=== PATIENT | male | born 1965 | race African-American/Black ===

== ENCOUNTER 2021-11-08 15:10 | Emergency (ER) | payer MEDICAID ==
[~2021-11-08] VITALS: Ht 180.3 cm; Wt 140.9 kg
[2021-11-08] MEDS ORDERED: LISI-893 PO (15:32)
[2021-11-08] MEDS ORDERED: RIVA2.5T3 PO (15:32)
[2021-11-08 16:12] LABS: BASOPHILS % (AUTO) 0.5 % (0.0-2.0); EOSINOPHILS % (AUTO) 1.1 % (1.0-6.0); HEMATOCRIT 43.4 % (41-53); HEMOGLOBIN 14.5 g/dL (13.5-17.5); LYMPHOCYTES # (AUTO) 2.5 K/uL (1.0-4.8); LYMPHOCYTES % (AUTO) 34.4 % (22.0-44.0); MEAN CORPUSCULAR HEMOGLOBIN 26.7 pg (26.0-34.0); MEAN CORPUSCULAR HGB CONC 33.4 G/dL (31.0-37.0); MEAN CORPUSCULAR VOLUME 80 fL (80-100); MONOCYTES # (AUTO) 0.6 K/uL (0.1-1.0); PLATELET COUNT (AUTO) 177 K/uL (150-450); RED BLOOD CELL COUNT(AUTO) 5.44 MIL/uL (4.50-5.90); RED CELL DISTRIBUTION WIDTH 15.7 % (11.5-14.5)
[2021-11-08 16:27] LABS: CALCIUM, TOTAL 9.6 mg/dL (8.8-10.5); CREATININE 1.49 mg/dL (0.60-1.30); POTASSIUM 3.4 mmol/L (3.5-5.1)
[2021-11-08 16:33] LABS: ALBUMIN 3.6 g/dL (3.4-5.0); BILIRUBIN,TOTAL 0.5 mg/dL (0.1-1.0); TOTAL PROTEIN, SERUM 7.7 g/dL (6.4-8.2)
[2021-11-08 18:14] VITALS: BP 126/85
== END 2021-11-08 18:52 | disposition home or self-care (01) ==
LOC: EMS 15:10
DX: T18.0XXA Foreign body in mouth, initial encounter (principal); I10 Essential (primary) hypertension; I48.91 Unspecified atrial fibrillation; X58.XXXA Exposure to other specified factors, initial encounter; Y93.89 Activity, other specified; Y92.89 Other specified places as the place of occurrence of the external cause; Y99.8 Other external cause status
CPT/HCPCS: 70490; 80053; 85025; 99284

== ENCOUNTER 2022-01-13 17:49 | Inpatient (IN) | payer MEDICAID ==
[~2022-01-13] VITALS: Ht 180.3 cm; Wt 139.3 kg
[~2022-01-13 17:49] MED LIST: LISI-893 PO; RIVA2.5T3 PO
[2022-01-13] MEDS ORDERED: RIVA20TA PO (18:12)
[2022-01-13] MEDS ORDERED: LORA10TA7 PO (18:12)
[2022-01-13] MEDS ORDERED: LISI30TA4 PO (18:12)
[2022-01-13] MEDS ORDERED: ATOR40TA71 PO (18:12)
[2022-01-13] MEDS ORDERED: METO-416 PO (18:12)
[2022-01-13 19:08] LABS: BASOPHILS % (AUTO) 0.6 % (0.0-2.0); EOSINOPHILS % (AUTO) 0.8 % (1.0-6.0); HEMATOCRIT 43.6 % (41-53); HEMOGLOBIN 14.3 g/dL (13.5-17.5); LYMPHOCYTES # (AUTO) 2.4 K/uL (1.0-4.8); LYMPHOCYTES % (AUTO) 34.9 % (22.0-44.0); MEAN CORPUSCULAR HEMOGLOBIN 26.9 pg (26.0-34.0); MEAN CORPUSCULAR HGB CONC 32.7 G/dL (31.0-37.0); MEAN CORPUSCULAR VOLUME 82 fL (80-100); MONOCYTES # (AUTO) 0.5 K/uL (0.1-1.0); MONOCYTES % (AUTO) 6.5 % (2.0-9.0); NEUTROPHILS % (AUTO) 57.2 % (40.0-70.0); PLATELET COUNT (AUTO) 155 K/uL (150-450); RED BLOOD CELL COUNT(AUTO) 5.31 MIL/uL (4.50-5.90); RED CELL DISTRIBUTION WIDTH 16.3 % (11.5-14.5)
[2022-01-13 19:20] LABS: CALCIUM, TOTAL 9.9 mg/dL (8.8-10.5); CREATININE 1.6 mg/dL (0.60-1.30)
[2022-01-13 19:21] LABS: INR 1.2 (0.9-1.1); PROTHROMBIN TIME 12.9 SEC (9.4-11.6)
[2022-01-13 19:25] LABS: ALBUMIN 3.5 g/dL (3.4-5.0); BILIRUBIN,TOTAL 0.9 mg/dL (0.1-1.0); TOTAL PROTEIN, SERUM 7.2 g/dL (6.4-8.2)
[2022-01-13] MEDS ORDERED: FUROSEMIDE 40 MG/4 ML VIAL IVP ONE (20:00)
[2022-01-13] MEDS ORDERED: DILTIAZEM HCL 5 MG/ML 5 ML VIAL IVP ONE (20:00)
[2022-01-13] MEDS ORDERED: ONDANSETRON HCL 4 MG/2 ML VIAL IVP PRN (20:45)
[2022-01-13] MEDS ORDERED: ACETAMINOPHEN 325 MG TABLET PO PRN (20:45)
[2022-01-13 21:31] LABS: APPEARANCE,URINE CLEAR (CLEAR); BILIRUBIN,URINE NEGATIVE (NEGATIVE); GLUCOSE, URINE (UA) NEGATIVE (NEGATIVE); KETONES,URINE NEGATIVE (NEGATIVE); LEUKOCYTE ESTERASE ,URINE NEGATIVE (NEGATIVE); NITRATE,URINE NEGATIVE (NEGATIVE); OCCULT BLOOD,URINE NEGATIVE (NEGATIVE); PROTEIN,URINE TRACE mg/dL (NEGATIVE); SPECIFIC GRAVITIY, URINE 1.013 (1.003-1.030); UROBILINOGEN,URINE <=1.0 mg/dL (<=1.0)
[2022-01-13 21:32] LABS: CREATININE,URINE RANDOM 121.2 mg/dL (30.0-125.0); SODIUM,URINE RANDOM 121 mmol/l (20-110)
[2022-01-13 21:51] LABS: BACTERIA,URINE None Seen /HPF (None Seen); RBC,URINE 0-2 /HPF (0-2); SQUAMOUS EPITHELIAL CELL,UR Rare /LPF (None Seen); WBC,URINE 0-2 /HPF (0-5)
[2022-01-13 21:59] LABS: THYROID STIMULATING HORMONE 2.07 uIU/mL (0.36-3.74)
[2022-01-14] MEDS ORDERED: LABETALOL HCL 100 MG TABLET PO SCH ×2 (06:00→21:00)
[2022-01-14 06:54] LABS: BASOPHILS % (AUTO) 0.6 % (0.0-2.0); CALCIUM, TOTAL 9.5 mg/dL (8.8-10.5); CREATININE 1.75 mg/dL (0.60-1.30); HEMATOCRIT 43.5 % (41-53); HEMOGLOBIN 14.3 g/dL (13.5-17.5); LYMPHOCYTES # (AUTO) 2.3 K/uL (1.0-4.8); LYMPHOCYTES % (AUTO) 29.9 % (22.0-44.0); MEAN CORPUSCULAR HEMOGLOBIN 27.3 pg (26.0-34.0); MEAN CORPUSCULAR VOLUME 83 fL (80-100); MONOCYTES # (AUTO) 0.7 K/uL (0.1-1.0); MONOCYTES % (AUTO) 9.3 % (2.0-9.0); NEUTROPHILS # (AUTO) 4.6 K/uL (1.8-7.7); NEUTROPHILS % (AUTO) 59.2 % (40.0-70.0); PLATELET COUNT (AUTO) 160 K/uL (150-450); POTASSIUM 3.7 mmol/L (3.5-5.1); RED BLOOD CELL COUNT(AUTO) 5.25 MIL/uL (4.50-5.90); RED CELL DISTRIBUTION WIDTH 16.9 % (11.5-14.5)
[2022-01-14 08:14] LABS: COVID AG,FIA SOURCE NASAL SWAB
[2022-01-14] MEDS ORDERED: RIVAROXABAN 20 MG TABLET PO SCH (09:00)
[2022-01-14] MEDS ORDERED: FUROSEMIDE 40 MG/4 ML VIAL IVP SCH ×2 (09:00→12:00)
[2022-01-14] MEDS: LORATADINE 10 MG TABLET PO SCH (09:05)
[2022-01-14] MEDS: LISINOPRIL 10 MG TABLET PO SCH (09:05)
[2022-01-14] MEDS: ATORVASTATIN CALCIUM 40 MG TABLET PO SCH (09:06)
[2022-01-14] MEDS: METOPROLOL SUCCINATE 50 MG ER TABLET PO SCH (09:06)
[2022-01-14] MEDS: RIVAROXABAN 15 MG TABLET PO SCH (09:06)
[2022-01-14] MEDS ORDERED: DIGOXIN 250 MCG/ML 2 ML AMP IVP ONE (14:30)
[2022-01-14 15:09] VITALS: BP 148/96
[2022-01-14 20:56] VITALS: BP 150/96
[2022-01-14] MEDS: FUROSEMIDE 20 MG/2 ML VIAL IVP SCH (21:36)
[2022-01-14 23:42] VITALS: BP 146/96
[2022-01-14] MEDS ORDERED: LABETALOL HCL 5 MG/ML 20 ML VIAL IVP ONE (23:45)
[2022-01-15] VITALS (7 sets, daily range): BP systolic 117–153; BP diastolic 80–112
[2022-01-15] MEDS ORDERED: AMIODARONE HCL 150 MG in DEXTROSE 5%-WATER 97 ML IV ONE (01:00)
[2022-01-15] MEDS ORDERED: AMIODARONE HCL 360 MG in DEXTROSE 5%-WATER 242.8 ML IV ONE (01:00)
[2022-01-15 06:23] LABS: BASOPHILS % (AUTO) 0.3 % (0.0-2.0); EOSINOPHILS % (AUTO) 0.9 % (1.0-6.0); HEMATOCRIT 43.6 % (41-53); HEMOGLOBIN 14.2 g/dL (13.5-17.5); LYMPHOCYTES # (AUTO) 2.3 K/uL (1.0-4.8); LYMPHOCYTES % (AUTO) 26.2 % (22.0-44.0); MEAN CORPUSCULAR HEMOGLOBIN 27.3 pg (26.0-34.0); MEAN CORPUSCULAR HGB CONC 32.7 G/dL (31.0-37.0); MEAN CORPUSCULAR VOLUME 84 fL (80-100); MONOCYTES # (AUTO) 0.2 K/uL (0.1-1.0); MONOCYTES % (AUTO) 2.2 % (2.0-9.0); NEUTROPHILS # (AUTO) 6.2 K/uL (1.8-7.7); NEUTROPHILS % (AUTO) 70.4 % (40.0-70.0); PLATELET COUNT (AUTO) 141 K/uL (150-450); RED BLOOD CELL COUNT(AUTO) 5.21 MIL/uL (4.50-5.90); RED CELL DISTRIBUTION WIDTH 16.6 % (11.5-14.5)
[2022-01-15 06:44] LABS: CALCIUM, TOTAL 9.5 mg/dL (8.8-10.5); CREATININE 1.77 mg/dL (0.60-1.30); POTASSIUM 3.3 mmol/L (3.5-5.1)
[2022-01-15] MEDS ORDERED: AMIODARONE HCL 540 MG in DEXTROSE 5%-WATER 239.2 ML IV ONE (07:00)
[2022-01-15] MEDS ORDERED: DIGOXIN 250 MCG/ML 2 ML AMP IVP ONE (09:15)
[2022-01-15] MEDS: FUROSEMIDE 20 MG/2 ML VIAL IVP SCH (09:28)
[2022-01-15] MEDS: RIVAROXABAN 15 MG TABLET PO SCH (09:29)
[2022-01-15] MEDS: LORATADINE 10 MG TABLET PO SCH (09:29)
[2022-01-15] MEDS: LISINOPRIL 10 MG TABLET PO SCH (09:29)
[2022-01-15] MEDS: METOPROLOL SUCCINATE 50 MG ER TABLET PO SCH (09:29)
[2022-01-15] MEDS: ATORVASTATIN CALCIUM 40 MG TABLET PO SCH (09:29)
[2022-01-16 04:39] VITALS: BP 146/99
[2022-01-16 06:57] LABS: CALCIUM, TOTAL 10.1 mg/dL (8.8-10.5); CREATININE 1.75 mg/dL (0.60-1.30); POTASSIUM 3.7 mmol/L (3.5-5.1)
[2022-01-16 07:51] VITALS: BP 167/105
[2022-01-16] MEDS: LORATADINE 10 MG TABLET PO SCH (08:45)
[2022-01-16] MEDS: RIVAROXABAN 15 MG TABLET PO SCH (08:45)
[2022-01-16] MEDS: LISINOPRIL 10 MG TABLET PO SCH (08:46)
[2022-01-16] MEDS: ATORVASTATIN CALCIUM 40 MG TABLET PO SCH (08:47)
[2022-01-16] MEDS: METOPROLOL SUCCINATE 50 MG ER TABLET PO SCH (08:47)
[2022-01-16] MEDS ORDERED: FUROSEMIDE 20 MG TABLET PO SCH (09:00)
[2022-01-16 10:47] VITALS: BP 162/107
[2022-01-16] MEDS ORDERED: LISI-893 PO ×2 (11:39→14:59)
[2022-01-16] MEDS ORDERED: METO-391 PO (11:39)
[2022-01-16] MEDS ORDERED: FURO20 PO (11:39)
[2022-01-16] MEDS ORDERED: RIVA15TA PO (11:39)
[2022-01-16] MEDS ORDERED: ATOR40TA71 PO (11:39)
[2022-01-16] MEDS ORDERED: DIGOXIN 125 MCG TABLET PO SCH (14:00)
[2022-01-16] MEDS ORDERED: DIGO125T84 PO (15:01)
== END 2022-01-16 16:30 | disposition home or self-care (01) | DRG 194 ==
LOC: EMS 17:49 → 5S 01-14 11:29
PROVIDERS: ADMIT Internal Medicine; ATTEND Internal Medicine
DX: I13.0 Hypertensive heart and chronic kidney disease with heart failure and stage 1 through stage 4 chronic kidney disease, or unspecified chronic kidney disease (principal); N17.9 Acute kidney failure, unspecified; I48.19 Other persistent atrial fibrillation; Z79.01 Long term (current) use of anticoagulants; I50.43 Acute on chronic combined systolic (congestive) and diastolic (congestive) heart failure; E66.01 Morbid (severe) obesity due to excess calories; E78.5 Hyperlipidemia, unspecified; Z20.822 Contact with and (suspected) exposure to COVID-19; E78.00 Pure hypercholesterolemia, unspecified; N18.30 Chronic kidney disease, stage 3 unspecified; Z68.41 Body mass index [BMI] 40.0-44.9, adult; Z71.3 Dietary counseling and surveillance; Z79.899 Other long term (current) drug therapy; Z86.73 Personal history of transient ischemic attack (TIA), and cerebral infarction without residual deficits
CPT/HCPCS: 71045; 80048; 80053; 81001; 82570; 83735; 83880; 84300; 84443; 84484; 85025; 85610; 93005; 93306; 99291; J0282; J1160; J1940; J3490; J7060; 36415-L1; 36415-TC

== ENCOUNTER 2022-02-15 17:27 | Emergency (ER) | payer MEDICAID ==
[~2022-02-15] VITALS: Ht 180.3 cm; Wt 136.4 kg
[~2022-02-15 17:27] MED LIST changes: +ATOR40TA71 PO; +DIGO125T84 PO; +FURO20 PO; +LORA10TA7 PO; +METO-391 PO; +RIVA15TA PO; -RIVA2.5T3 PO
[2022-02-15 18:22] LABS: COVID AG,FIA SOURCE NASAL SWAB
[2022-02-15 18:42] LABS: INFLUENZA TYPE A NEGATIVE FOR TYPE A (NEGATIVE); INFLUENZA TYPE B NEGATIVE FOR TYPE B (NEGATIVE)
[2022-02-15 22:04] VITALS: BP 141/98
[2022-02-15] MEDS ORDERED: BENZ-70 PO (22:06)
[2022-02-15] MEDS ORDERED: AZIT250T9 PO (22:06)
[2022-02-15] MEDS ORDERED: BENZONATATE 100 MG CAPSULE PO ONE (22:30)
== END 2022-02-15 22:30 | disposition home or self-care (01) ==
LOC: EMS 17:33
DX: J40 Bronchitis, not specified as acute or chronic (principal); I10 Essential (primary) hypertension; I48.91 Unspecified atrial fibrillation; E78.00 Pure hypercholesterolemia, unspecified; Z79.899 Other long term (current) drug therapy; Z20.822 Contact with and (suspected) exposure to COVID-19
CPT/HCPCS: 71045; 87804; 99284

== ENCOUNTER 2023-07-11 01:38 | Emergency (ER) | payer MEDICAID ==
[~2023-07-11] VITALS: Ht 180.3 cm; Wt 137.0 kg
[~2023-07-11 01:38] MED LIST changes: +BENZ-227 PO
[2023-07-11 02:00] VITALS: PULSE 84; TEMP 99.2
[2023-07-11 02:07] LABS: APPEARANCE,URINE CLEAR (CLEAR); BILIRUBIN,URINE NEGATIVE (NEGATIVE); COLOR,URINE COLORLESS (YELLOW); GLUCOSE, URINE (UA) NEGATIVE (NEGATIVE); KETONES,URINE NEGATIVE (NEGATIVE); LEUKOCYTE ESTERASE ,URINE NEGATIVE (NEGATIVE); NITRATE,URINE NEGATIVE (NEGATIVE); OCCULT BLOOD,URINE NEGATIVE (NEGATIVE); PH,URINE 5.5 (5.0-8.0); PROTEIN,URINE NEGATIVE (NEGATIVE); SPECIFIC GRAVITIY, URINE 1.012 (1.003-1.030)
[2023-07-11 03:34] VITALS: BP 141/100; RESP 16
== END 2023-07-11 05:01 | disposition left against medical advice (07) ==
LOC: EMS 01:41
DX: R30.0 Dysuria (principal); R10.9 Unspecified abdominal pain; E78.00 Pure hypercholesterolemia, unspecified; I10 Essential (primary) hypertension; I48.91 Unspecified atrial fibrillation
CPT/HCPCS: 81003; 87491; 87591; 99283

== ENCOUNTER 2024-02-23 15:28 | Emergency (ER) | payer MEDICAID ==
[~2024-02-23] VITALS: Ht 180.3 cm; Wt 137.7 kg
[~2024-02-23 15:28] MED LIST changes: -BENZ-227 PO; -DIGO125T84 PO; -FURO20 PO; +FURO20TA5 PO
[2024-02-23 16:15] VITALS: TEMP 98.7
[2024-02-23] MEDS ORDERED: RIVA20TA PO (16:18)
[2024-02-23] MEDS ORDERED: CARV25 PO (16:18)
[2024-02-23] MEDS ORDERED: LOSA-381 PO (16:18)
[2024-02-23 16:51] LABS: BASOPHILS % (AUTO) 0.6 % (0.0-2.0); EOSINOPHILS % (AUTO) 1.6 % (1.0-6.0); HEMATOCRIT 40.8 % (41-53); HEMOGLOBIN 13.4 g/dL (13.5-17.5); LYMPHOCYTES % (AUTO) 32.6 % (22.0-44.0); MEAN CORPUSCULAR HEMOGLOBIN 26.2 pg (26.0-34.0); MEAN CORPUSCULAR HGB CONC 32.9 G/dL (31.0-37.0); MEAN CORPUSCULAR VOLUME 80 fL (80-100); MONOCYTES # (AUTO) 0.5 K/uL (0.1-1.0); MONOCYTES % (AUTO) 8.4 % (2.0-9.0); NEUTROPHILS # (AUTO) 3.5 K/uL (1.8-7.7); NEUTROPHILS % (AUTO) 56.8 % (40.0-70.0); PLATELET COUNT (AUTO) 169 K/uL (150-450); RED BLOOD CELL COUNT(AUTO) 5.14 MIL/uL (4.50-5.90); RED CELL DISTRIBUTION WIDTH 15.7 % (11.5-14.5); WHITE BLOOD COUNT (AUTO) 6.1 K/uL (4.5-11.0)
[2024-02-23 16:59] LABS: CALCIUM, TOTAL 9.6 mg/dL (8.8-10.5); CREATININE 1.48 mg/dL (0.60-1.30)
[2024-02-23 17:08] LABS: TROPONIN I-HIGH SENSITIVITY 21 ng/L (<76)
[2024-02-23 18:27] LABS: APPEARANCE,URINE CLEAR (CLEAR); BILIRUBIN,URINE NEGATIVE (NEGATIVE); COLOR,URINE LIGHT YELLOW (YELLOW); GLUCOSE, URINE (UA) NEGATIVE (NEGATIVE); KETONES,URINE NEGATIVE (NEGATIVE); LEUKOCYTE ESTERASE ,URINE NEGATIVE (NEGATIVE); NITRATE,URINE NEGATIVE (NEGATIVE); OCCULT BLOOD,URINE NEGATIVE (NEGATIVE); PH,URINE 6.5 (5.0-8.0); PROTEIN,URINE NEGATIVE (NEGATIVE); SPECIFIC GRAVITIY, URINE 1.014 (1.003-1.030); UROBILINOGEN,URINE <=1.0 mg/dL (<=1.0)
[2024-02-23] MEDS ORDERED: CARVEDILOL 25 MG TABLET PO ONE (18:30)
[2024-02-23] MEDS: CARVEDILOL 6.25 MG TABLET PO ONE (18:39)
[2024-02-23] MEDS: AmLODIPine BESYLATE 5 MG TABLET PO ONE (18:39)
[2024-02-23 19:35] VITALS: BP 158/107; PULSE 80; RESP 17; O2SAT 95
[2024-02-23] MEDS ORDERED: AMLO-257 PO (19:40)
== END 2024-02-23 20:29 | disposition home or self-care (01) ==
LOC: EMS 15:28
DX: I10 Essential (primary) hypertension (principal); E78.00 Pure hypercholesterolemia, unspecified; Z79.01 Long term (current) use of anticoagulants; Z98.890 Other specified postprocedural states
CPT/HCPCS: 80048; 81003; 84484; 85025; 99283